=== PATIENT | female | born 1985 | race Asian ===

== ENCOUNTER 2018-05-04 11:07 | Inpatient (IN) ==
[2018-05-04] MEDS ORDERED: Docusate Sodium 100 MG Capsule PO PRN (11:58)
[2018-05-04] MEDS ORDERED: Acetaminophen 325 MG Tablet PO PRN (11:58)
--- NOTE | 2018-05-04 12:09 | P.HPOB ---
History of Present Illness Service: ob Primary Care Physician: No Primary Care Physician Chief Complaint: pih History of Present Illness: 32 yo G1 with iup at 36 weeks with pih. She had labs over the weekend that noted increased P:C, worsening of UA and lft. She was going to turn in 24 hour urine today but was called and instructed to bring it with her to the hospital. She was placed on bedrest last week as she had elevated bp at home and at pharmacy checks. She was also having LEVINE but these resolved w tylenol. She also has had ruq pain starting last night. She has good fm, neg ctx/vb/lof. 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 pap or std OB: G1 Fam: no genetic or defects Review of Systems All other systems reviewed negative except as stated in HPI [facility] - Medical History Medical History: Medical History (Last Updated 04/24/18 @ 16:09 by Jorge Burden MD) Hyperthyroidism during - Tobacco History Second Hand Smoke Exposure: No Smoking Status: Never smoker - Alcohol History How Often Do You Have a Drink Containing Alcohol: Never - Substance Use History Substance History: No History of Abuse Medications and Allergies Allergies Allergy/AdvReac Type Severity Reaction Status Date / Time No Known Drug Allergies Allergy Unknown none Verified 04/12/18 12:18 Home Medications Medication Instructions Recorded Confirmed Type 1 tab PO DAILY 05/04/18 05/04/18 History Exam Vital signs: Vital Signs 05/04/18 11:37 Temperature 98.8 F Pulse Rate 74 Respiratory Rate 20 Blood Pressure 134/87 Intake & Output 05/03/18 05/04/18 05/04/18 18:59 06:59 18:59 Weight 64.41 kg Other: Weight On Admission 64.41 kg - Constitutional no acute distress - Routine HEENT Exam Head: Present: normocephalic Eye: Present: EOMI - Routine Neck Exam Present: full ROM - Routine Respiratory Exam Absent: accessory muscle use, decreased breath sounds - Routine Cardiovascular Exam Present: RRR - Routine Exam Comments: ft/thick/high per rn check - Routine Extremities Exam Absent: cyanosis, clubbing - Routine Neurological Exam Present: alert, oriented X3 Results - Labs CBC & Chem 7: 05/04/18 12:45 12/17/18 12:45 Caprini VTE Risk Assessment Caprini VTE Risk Assessment: No/Low Risk (score <= 1) Caprini Risk Assessment Model: Point Value = 1 Point Value = 2 Point Value = 3 Point Value = 5 Age 41-60 Minor surgery BMI > 25 kg/m2 Swollen legs Varicose veins or History of unexplained or recurrent spontaneous Oral contraceptives or hormone replacement Sepsis (< 1 month) Serious lung disease, including pneumonia (< 1 month) Abnormal pulmonary function Acute myocardial infarction Congestive heart failure (< 1 month) History of inflammatory bowel disease Medical patient at bed rest Age 61-74 Arthroscopic surgery Major open surgery (> 45 min) Laparoscopic surgery (> 45 min) Malignancy Confined to bed (> 72 hours) Immobilizing plaster cast Central venous access Age >= 75 History of VTE Family history of VTE Factor V Leiden Prothrombin [id number] Lupus anticoagulant Anticardiolipin antibodies Elevated serum homocysteine Heparin-induced thrombocytopenia Other congenital or acquired thrombophilia Stroke (< 1 month) Elective arthroplasty Hip, pelvis, or leg fracture Acute spinal cord injury (< 1 month) Prophylaxis Regimen: Total Risk Factor Score Risk Level Prophylaxis Regimen 0-1 Low Early ambulation 2 Moderate Order ONE of the following: *Sequential Compression Device (SCD) *Heparin 5000 units SQ BID 3-4 Higher Order ONE of the following medications: *Heparin 5000 units SQ TID *Enoxaparin/Lovenox 40 mg SQ daily (WT < 150 kg, CrCl > 30 mL/min) *Enoxaparin/Lovenox 30 mg SQ daily (WT < 150 kg, CrCl > 10-29 mL/min) *Enoxaparin/Lovenox 30 mg SQ BID (WT < 150 kg, CrCl > 30 mL/min) AND/OR *Sequential Compression Device (SCD) 5 or more Highest Order ONE of the following medications: *Heparin 5000 units SQ TID (Preferred with Epidurals) *Enoxaparin/Lovenox 40 mg SQ daily (WT < 150 kg, CrCl > 30 mL/min) *Enoxaparin/Lovenox 30 mg SQ daily (WT < 150 kg, CrCl > 10-29 mL/min) *Enoxaparin/Lovenox 30 mg SQ BID (WT < 150 kg, CrCl > 30 mL/min) AND *Sequential Compression Device (SCD) Assessment and Plan - Diagnosis (1) PIH ( induced hypertension) Code(s): Z3A.34 - 34 weeks gestation of Status: Acute (2) 36 weeks gestation of Code(s): O16.9 - Unspecified maternal hypertension, unspecified trimester Status: Acute (3) Headache Code(s): R51 - Headache Status: Acute - Plan 32 yo G1with iup at 36 weeks being admitted for pre-eclampsia workup. She has new ruq pain that started last night. Outpt labs with P:C of 0.9, previously 0.17, UA 7.3, AST 35. She collected a 24 hour urine at home, will submit in hospital for evaluation. Will start bms. May need delivery now based on labs and BP. 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 Will proceed with iol with cervical ripening agent cervidil. Will start magnesium during active phase of labor.
[2018-05-04] MEDS: Betamethasone Sod Phos/Acetate Inj 30 MG/5 ML Vial IM SCH (12:32)
[2018-05-04 13:32] LABS: Bilirubin,Urine Negative (Negative); Clarity,Urine Hazy (Clear); Color,Urine Yellow (Yellw/Straw); Glucose,Urine (UA) Negative (Negative); Hyaline Casts,Urine 1 /lpf (0-3); Leukocyte Esterase,Urine Negative (Negative); Mucus,Urine Few /lpf (Occasional); Nitrite,Urine Negative (Negative); Specific Gravity,Urine 1.021 (1.002-1.035); Squamous Epithelial Cell,Urine 16 /hpf (0-5); Transitional Epi Cells,Urine 1 /hpf
[2018-05-04 13:34] LABS: Hematocrit 34.8 % (35.0-46.0); Hemoglobin 11.8 gm/dL (11.6-15.3); Mean Corpuscular Hemoglobin 30.2 pg (27.0-34.0); Mean Corpuscular Volume 88.7 fL (80.0-100.0); Mean Platelet Volume 10.3 fL (7.0-11.0); Platelet Count 182 th/mm3 (150-450); Red Blood Count 3.93 mil/mm3 (4.00-5.30); Red Cell Distribution Width 14.1 % (11.6-17.2); White Blood Count 12.4 th/mm3 (4.0-11.0)
[2018-05-04 13:47] LABS: Alanine Aminotransferase 39 U/L (10-53); Albumin 2.8 g/dL (3.4-5.0); Anion Gap 6 meq/L (5-15); Aspartate Aminotransferase 41 U/L (15-37); Blood Urea Nitrogen 19 mg/dL (7-18); Calcium 8.6 mg/dL (8.5-10.1); Chloride 106 meq/L (98-107); Glomerular Filtration Rate 58 mL/min (>89); Glucose,Random 79 mg/dL (74-106); Potassium 4.5 meq/L (3.5-5.1); Sodium 136 meq/L (136-145); Uric Acid 8.9 mg/dl (2.6-6.0)
[2018-05-04 13:49] LABS: Alkaline Phosphatase 343 U/L (45-117); Total Protein 7.6 g/dL (6.4-8.2)
[2018-05-04 14:09] LABS: Creatinine 24 Hour,Urine 1.25 gm/24hr (0.63-2.50)
[2018-05-04] MEDS ORDERED: Naloxone Inj 0.4 MG/ML Vial IV.PUSH PRN (14:42)
[2018-05-04] MEDS ORDERED: Sod Chloride 0.9% Inj 1,000 ML IV.CONT PRN (14:42)
[2018-05-04] MEDS ORDERED: fentaNYL Citrate Inj 100 MCG/2 ML Ampul IV.PUSH PRN ×2 (14:42)
[2018-05-04] MEDS ORDERED: Sodium Chlor 0.9% Inj 500 ML IV.SIG PRN (14:42)
[2018-05-04] MEDS ORDERED: Citric Acid/Sodium Citrate Liq 30 ML UDC PO SCH (14:45)
[2018-05-04] MEDS ORDERED: Sod Chloride 0.9% Inj 1,000 ML IRRIGATION SCH (14:45)
[2018-05-04] MEDS ORDERED: Oxytocin 30 Units/500ml Premix 30 UNITS/500 ML BAG IV.SIG ONE (15:00)
[2018-05-04] MEDS ORDERED: Oxytocin 30 Units/500ml Premix 30 UNITS/500 ML BAG IV.SIG PRN (17:46)
[2018-05-04] MEDS: Mag Sulf/Water 40 gm/1000 ml 40 GM/1,000 ML BAG IV.CONT SCH (20:35)
[2018-05-05 06:08] LABS: Hematocrit 38.2 % (35.0-46.0); Mean Corpuscular Hemoglobin 30.2 pg (27.0-34.0); Mean Corpuscular Volume 88.7 fL (80.0-100.0); Mean Platelet Volume 10.7 fL (7.0-11.0); Platelet Count 204 th/mm3 (150-450); Red Cell Distribution Width 13.9 % (11.6-17.2); White Blood Count 20.4 th/mm3 (4.0-11.0)
[2018-05-05 06:23] LABS: Albumin 2.9 g/dL (3.4-5.0); Uric Acid 8.6 mg/dl (2.6-6.0)
[2018-05-05 06:25] LABS: Total Protein 7.8 g/dL (6.4-8.2)
[2018-05-05 08:52] LABS: Albumin 2.9 g/dL (3.4-5.0); Anion Gap 13 meq/L (5-15); Aspartate Aminotransferase 40 U/L (15-37); Blood Urea Nitrogen 16 mg/dL (7-18); Calcium 8.8 mg/dL (8.5-10.1); Carbon Dioxide 15.8 meq/L (21.0-32.0); Chloride 105 meq/L (98-107); Glomerular Filtration Rate 70 mL/min (>89); Glucose,Random 82 mg/dL (74-106); Potassium 4.4 meq/L (3.5-5.1); Sodium 134 meq/L (136-145)
[2018-05-05 08:53] LABS: Alanine Aminotransferase 42 U/L (10-53)
[2018-05-05 08:55] LABS: Alkaline Phosphatase 356 U/L (45-117); Total Protein 7.7 g/dL (6.4-8.2)
--- NOTE | 2018-05-05 08:58 | P.OBLABOR ---
Subjective Interval history: feeling mild contractions, reports SROM clear fluid around 4am; no headache or emesis overnight, still having RUQ pain but not worse, no blurry vision reported Objective Vital Signs: Vital Signs - 8 hr 05/05/18 01:43 05/05/18 02:58 05/05/18 04:00 Temperature 98.0 F Pulse Rate 61 60 61 Respiratory Rate 18 18 18 Blood Pressure 138/83 149/90 H 151/87 H 05/05/18 05:00 05/05/18 05:32 05/05/18 06:08 Temperature Pulse Rate 64 68 73 Respiratory Rate 18 18 Blood Pressure 145/89 H 134/86 141/87 H 05/05/18 06:12 05/05/18 06:42 05/05/18 07:05 Temperature 99.5 F Pulse Rate 75 65 Respiratory Rate 18 Blood Pressure 140/84 134/83 05/05/18 07:14 Temperature 98.2 F Pulse Rate Respiratory Rate 18 Blood Pressure Objective: Pelvic Exam: Cervix: [post] Dilatation: [1] Effacement: [th] Station: [-3] Presentation: [vtx] Membranes: [ruptured clear at 4am 05/05/18] Uterine Contractions: [q3-5 min] FHT's: Category: [I] Baseline: [130s-140s] Reactive: [y] Variability: [y] Decels: [n] Weeks Gestation: 36 Patient Started Active Labor: No Medical Induction of Labor: Yes Artificial Rupture of Membrane: No Assessment and Plan - Diagnosis (1) Preeclampsia Code(s): O14.90 - Unspecified pre-eclampsia, unspecified trimester Status: Acute (2) PIH ( induced hypertension) Code(s): Z3A.34 - 34 weeks gestation of Status: Acute (3) 36 weeks gestation of Code(s): O16.9 - Unspecified maternal hypertension, unspecified trimester Status: Acute (4) Headache Code(s): R51 - Headache Status: Acute - Plan 32 yo G1 with iup at 36.3 weeks admitted for pre-eclampsia workup, ruled in and induction started with cervidil. Overnight SROM'd clear fluid, still in latent labor, only 1 cm and thick cervix, on pitocin now, continue active mgmt. Previous note from Dr. Manning admission assessment: "She has new ruq pain that started last night. Outpt labs with P:C of 0.9, previously 0.17, UA 7.3, AST 35. She collected a 24 hour urine at home, will submit in hospital for evaluation. Will start bms. GBS negative. 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 Will proceed with iol with cervical ripening agent cervidil. Will start magnesium during active phase of labor." Discharge Planning: routine, 2-3d PP (1) Preeclampsia Qualifiers: Trimester: third trimester Qualified Code(s): O14.93 - Unspecified pre- eclampsia, third trimester (2) PIH ( induced hypertension) Qualifiers: Trimester: third trimester Qualified Code(s): O13.3 - Gestational [- induced] hypertension without significant proteinuria, third trimester (4) Headache Qualifiers: Headache type: unspecified Headache chronicity pattern: acute headache Intractability: not intractable Qualified Code(s): R51 - Headache
[2018-05-05] MEDS: Prenatal Vit/Ca/Iron/Folic Acid Tablet PO SCH (14:50)
[2018-05-05] MEDS ORDERED: Betamethasone Sod Phos/Acetate Inj 30 MG/5 ML Vial IM ONE (15:00)
[2018-05-05] MEDS: Betamethasone Sod Phos/Acetate Inj 30 MG/5 ML Vial IM SCH (15:03)
[2018-05-05] MEDS ORDERED: fentaNYL 2MCG-Bupiv 0.125% Epi 150 ML EPIDURAL ONE (22:54)
[2018-05-06] MEDS ORDERED: Simethicone 80 MG Chew Tablet PO PRN (10:32)
[2018-05-06] MEDS ORDERED: Senna/Docusate Sodium 8.6/50 MG Tablet PO PRN (10:32)
[2018-05-06] MEDS ORDERED: Oxytocin 30 Units/500ml Premix 30 UNITS/500 ML BAG IV.SIG ONE (10:32)
[2018-05-06] MEDS ORDERED: Morphine Sulfate PF Inj 5 MG/10 ML Ampul ONE (10:33)
--- NOTE | 2018-05-06 11:41 | P.OBDELI ---
Procedure Note Performed by: Calixto Rachel MD Procedure: Primary Low Transverse Section Indication for Delivery: Other (arrest of labor) Informed Consent Obtained: For anesthesia, For procedure Confirmed Correct: Patient, Procedure, Site, Time-out taken Anesthesia: Epidural Medication Prior to Procedure: As documented in eMAR Monitoring During Procedure: Blood pressure monitoring, journal box inspector, doppler, monitor, Pulse oximetry Urinary Catheter: Inserted using sterile technique, To dependent drainage Sterile Preparation: Duraprep, In usual fashion Position: Supine with wedge to right side, Supine with safety belt applied - Operative Features Skin Incision: Pfannenstiel Uterine Incision: Low transverse w/knife / scissors Membranes Ruptured: Previously, Appearance of fluid (light meconium) Presentation: Occiput anterior Status of : Viable, Cord blood, Umbilical cord, Nursery present, Resuscitation required Placenta Delivered: Intact Medications: Antibiotics, Oxytocin Estimated blood loss (mL): 650 Procedure Tolerated: Well Maternal Condition: Stable Baby Condition: Stable - : Male Infant Delivery Date: 05/06/18 Weight: 2.551 kg ("Deni") Delivery of Infant: Uneventful score (1 min): 7 score (5 min): 9
[2018-05-06] MEDS: Prenatal Vit/Ca/Iron/Folic Acid Tablet PO SCH (11:54)
--- NOTE | 2018-05-06 12:22 | MP ---
cc: Calixto Rachel MD DATE OF OPERATION: 05/06/2018 PREOPERATIVE DIAGNOSIS: The patient is 36 weeks with preeclampsia, arrest of descent, failure to progress. PROCEDURE: Primary low transverse section, delivery of viable male . POSTOPERATIVE DIAGNOSIS: Same. SURGEON: Calixto Rachel MD. ANESTHESIA: Epidural. ESTIMATED BLOOD LOSS: 650 mL. DRAINS: Lee to gravity. OPERATIVE FINDINGS: Male infant delivered. Apgars were 7 at one minute and 9 at 5. Cord blood gas was obtained, results are pending. Baby weighed 5 pounds 10 ounces. INDICATION OF PROCEDURE: The patient was brought in for elective induction due to increasing blood pressures with signs of developing early preeclampsia without severe features. The patient magnesium. She had been ruptured and had stalled at 4 cm, 4 cm was documented at 8 p.m. on 05/05/2018. She failed to progress despite adequate uterine contractions and the decision was to proceed with operative delivery. The patient was on magnesium 1 gram an hour and this was stopped for the duration of her section. The patient received Ancef IV prophylactically. PROCEDURE: The patient was in stable condition. heart rate tracing was category 1. She underwent reinforcement of epidural with good result. She was prepped and draped. Lee was previously inserted was draining clear urine. Sequential's were placed on lower extremities for VTE prophylaxis. After she was prepped and draped, a timeout was conducted, agreed with all present in the room. The patient was again tested for pain level and she had excellent pain management. A Pfannenstiel incision was utilized. It was just made above the pubic symphysis. It was carried through the skin down through the subcutaneous layer by sharp dissection. Any active bleeding was cauterized with the Bovie. The fascia was identified scored in the midline, extended laterally, then dissected from the rectus muscle. Entry into the peritoneal cavity was accomplished without difficulty by sharp dissection. The bladder blade was placed over the pubic symphysis. Transverse incision was made in the lower uterine segment, pushing the peritoneum off allowing the bladder to be out of the operative field. Entry into the uterine cavity revealed light green meconium fluid. This was not particulate. The was delivered in total with good tone and cry. Cord was doubly clamped and cut. Delay cord clamping was chosen not to be appropriate for this patient due to excessive bleeding. Once the cord was doubly clamped and cut and the infant was taken to [place] by the nursery staff. A cord segment was isolated and for cord blood gas and then a cord blood type was obtained. Placenta was removed intact without difficulty trailing membranes, no retained tissue. The uterus was nica nicely. Adnexa were palpated and visualized to be normal. Closure of the uterus was double-layer, first was a running locking suture, 0 Monocryl, followed by a second imbricating suture of 0 Monocryl. Pelvis was irrigated. No active bleeding, no retained blood clot. Full count was made and correct. Peritoneum was then closed with a running suture of 2-0 Monocryl. The muscle belly was reapproximated at the level of the pyramidalis with an interrupted 2-0 Monocryl. The fascia was then closed with 0 Vicryl in a simple running fashion with good result. Subcutaneous layer was irrigated. Any active bleeding again was cauterized. This space was reapproximated with a running suture of 2-0 Monocryl and 0 Stratafix was used to close the skin in a subcuticular fashion. Steri-Strips were applied to the wound. Dressing was applied. Final count was correct. The patient was stable. was doing well. Calixto Rachel MD SJKleber/ade/alma rosa , 11:46 AM , 11:56 AM
[2018-05-06] MEDS ORDERED: Naloxone Inj 0.4 MG/ML Vial IV.PUSH PRN (14:17)
[2018-05-06] MEDS: Mag Sulf/Water 40 gm/1000 ml 40 GM/1,000 ML BAG IV.CONT SCH (14:22)
[2018-05-06] MEDS: ceFAZolin 1 GM Premix Inj 1 GM/50 ML PIGGYBACK IV.SIG SCH (15:02)
[2018-05-06] MEDS ORDERED: Oxytocin 30 Units/500ml Premix 30 UNITS/500 ML BAG IV.SIG PRN (15:32)
[2018-05-06] MEDS: Labetalol 100 MG Tablet PO SCH (18:25)
[2018-05-07] MEDS: ceFAZolin 1 GM Premix Inj 1 GM/50 ML PIGGYBACK IV.SIG SCH (05:18)
[2018-05-07 05:50] LABS: Baso % (Auto) 0.1 % (0.0-2.0); Hematocrit 26.4 % (35.0-46.0); Hemoglobin 8.8 gm/dL (11.6-15.3); Lymph # (Auto) 2.4 th/mm3 (1.0-4.8); Mean Corpuscular HGB Conc 33.5 % (32.0-36.0); Mean Corpuscular Hemoglobin 29.7 pg (27.0-34.0); Mean Corpuscular Volume 88.6 fL (80.0-100.0); Mono # (Auto) 1.9 th/mm3 (0.0-0.9); Mono % (Auto) 6.3 % (0.0-8.0); Neut # (Auto) 25.3 th/mm3 (1.8-7.7); Neut % (Auto) 85.6 % (16.0-70.0); Platelet Count 150 th/mm3 (150-450); Red Blood Count 2.98 mil/mm3 (4.00-5.30); Red Cell Distribution Width 13.7 % (11.6-17.2); White Blood Count 29.6 th/mm3 (4.0-11.0)
[2018-05-07 06:16] LABS: Calcium 6.9 mg/dL (8.5-10.1); Carbon Dioxide 28.8 meq/L (21.0-32.0); Potassium 4.2 meq/L (3.5-5.1); Total Protein 5.6 g/dL (6.4-8.2)
[2018-05-07] MEDS: Labetalol 100 MG Tablet PO SCH ×2 (07:21→19:13)
[2018-05-07] MEDS: Ibuprofen 600 MG Tablet PO PRN ×3 (07:52→22:41)
--- NOTE | 2018-05-07 10:02 | P.PNOB ---
Subjective Post op day: 1 Interval history: Feeling well, no further ruq pain. No potter or blurry vision. No sob or palpitations. Still not ambulating as she is on mag and simons in place still. She has passed flatus Objective Vital Signs/I&O: Vital Signs 05/06/18 10:00 05/06/18 11:40 05/06/18 11:45 Temperature 98.0 F Pulse Rate 79 96 H Respiratory Rate 18 Blood Pressure 142/89 H 147/70 H 136/66 05/06/18 12:00 05/06/18 12:16 05/06/18 12:29 Temperature 98.4 F Pulse Rate 94 H 86 Respiratory Rate 18 18 Blood Pressure 119/59 L 103/72 05/06/18 12:31 05/06/18 12:52 05/06/18 12:55 Temperature Pulse Rate 79 84 83 Respiratory Rate 18 Blood Pressure 149/83 H 153/82 H 152/84 H 05/06/18 13:35 05/06/18 13:40 05/06/18 14:05 Temperature Pulse Rate 93 H 89 94 H Respiratory Rate Blood Pressure 170/90 H 05/06/18 14:10 05/06/18 15:00 05/06/18 15:05 Temperature Pulse Rate 93 H 92 H Respiratory Rate 16 Blood Pressure 152/82 H 05/06/18 15:15 05/06/18 15:35 05/06/18 16:00 Temperature Pulse Rate 97 H 93 H 113 H Respiratory Rate Blood Pressure 160/80 H 164/89 H 160/74 H 05/06/18 18:00 05/06/18 19:00 05/06/18 20:00 Temperature 99.1 F Pulse Rate 88 99 H Respiratory Rate 18 18 Blood Pressure 120/66 150/88 H 05/06/18 20:05 05/06/18 23:00 05/06/18 23:40 Temperature 98.7 F Pulse Rate 83 74 Respiratory Rate 18 Blood Pressure 140/82 113/62 05/07/18 01:00 05/07/18 02:06 05/07/18 04:00 Temperature Pulse Rate 72 70 74 Respiratory Rate 16 16 18 Blood Pressure 117/71 119/77 139/83 05/07/18 05:00 05/07/18 06:00 05/07/18 06:23 Temperature Pulse Rate 72 78 Respiratory Rate 18 18 Blood Pressure 135/80 125/72 05/07/18 07:23 05/07/18 07:40 05/07/18 07:50 Temperature 98.6 F Pulse Rate 65 66 66 Respiratory Rate 17 Blood Pressure 127/78 Intake & Output 05/06/18 05/07/18 05/07/18 18:59 06:59 18:59 Intake Total 1050 / 1050 1000 / 1000 Balance 1050 / 1050 1000 / 1000 Intake: IV 1050 / 1050 1000 / 1000 LR 1000 mL Inj 1,000 ML @ 75 1000 / 1000 mls/hr IV.CONT .[id number] [facility] Rx# :[id number] Magnesium Sulfate/Water 40 gm/ 1000 / 1000 1000 ml Premix 40 gm In 1,000 ml @ 1 GM/HR 25 mls/hr IV.CONT .Q24H [facility] Rx#:[id number] Ancef 1 GM Premix Inj 1 gm In 50 / 50 50 ml @ 150 mls/hr IV.SIG Q8H [facility] Rx#:[id number] Result Diagrams: 05/07/18 05:04 05/07/18 05:04 Objective Remarks: GENERAL: Well-nourished, well-developed patient. CARDIOVASCULAR: Regular rate and rhythm without murmurs, gallops, or rubs. RESPIRATORY: Breath sounds equal bilaterally. No accessory muscle use. ABDOMEN/GI: Abdomen soft, non-tender, bowel sounds present. Incision:dressing Clean, dry and intact. Fundus: Firm, non-tender at umbilicus. GENITOURINARY: Light to moderate bleeding. EXTREMITIES: No cyanosis or edema, non-tender, without signs of DVT. Normal reflexes Medications and IVs: Active Medications Acetaminophen (Tylenol) 650 mg PO Q4H PRN PRN Reason: PAIN SCALE 1 TO 2 Last Admin: 05/04/18 18:48 Dose: 650 mg Calcium Gluconate (Calcium Gluconate Inj) 1 gm IV.PUSH PRN PRN PRN Reason: Magnesium toxicity Citric Acid/Sodium Citrate (Sodium Citrate/Citric Acid Liq) 30 ml PO PRO SHOP ATTENDANT [facility] Stop: 05/08/18 14:44 Diphenhydramine HCl (Benadryl) 50 mg PO Q6H PRN PRN Reason: MILD TO MODERATE ITCHING Stop: 05/07/18 11:25 Diphenhydramine HCl (Benadryl Inj) 25 mg IV.PUSH Q6H PRN PRN Reason: MILD TO MODERATE ITCHING Stop: 05/07/18 11:25 Diphtheria/Pertussis/Tetanus Vacc (Boostrix Vaccine Inj) 0.5 ml IM .ONCE ONE Stop: 05/07/18 16:01 Docusate Sodium (Colace) 100 mg PO BID PRN PRN Reason: CONSTIPATION Last Admin: 05/06/18 22:40 Dose: 100 mg Fentanyl Citrate (Fentanyl Inj) 50 mcg IV.PUSH Q1H PRN PRN Reason: Pain Scale 3 - 5 Last Admin: 05/04/18 20:34 Dose: 50 mcg Fentanyl Citrate (Fentanyl Inj) 100 mcg IV.PUSH Q1H PRN PRN Reason: PAIN SCALE 6 TO 10 Lactated Ringer's (Lr 1000 Ml Inj) 1,000 mls @ 75 mls/hr IV.CONT .[id number] [facility] Last Admin: 05/06/18 22:40 Dose: 75 mls/hr Lactated Ringer's (Lr 1000 Ml Inj) 1,000 mls @ 3,000 mls/hr IV.SIG UNSCH PRN PRN Reason: compromise or epidural Sodium Chloride (Ns Inj) 500 mls @ 1,000 mls/hr IV.SIG UNSCH PRN PRN Reason: SEE LABEL COMMENTS Sodium Chloride (Ns Inj) 1,000 mls @ 100 mls/hr IV.CONT .Q10H PRN PRN Reason: SEE LABEL COMMENTS Oxytocin (Pitocin 30 Units/Ns 500 Ml Premix) 30 units in 500 mls @ 1 mls/hr IV.SIG TITRATE PRN; Protocol PRN Reason: For induction of labor Last Admin: 05/05/18 04:59 Dose: 1 milliunit/min, 1 mls/hr Magnesium Sulfate (Magnesium Sulfate/Water 40 Gm/1000 Ml Premix) 40 gm in 1, 000 mls @ 25 mls/hr IV.CONT .Q24H [facility] Last Admin: 05/06/18 14:22 Dose: 1 gm/hr, 25 mls/hr Lactated Ringer's (Lr 1000 Ml Inj) 1,000 mls @ 100 mls/hr IV.CONT .Q10H [facility] Stop: 05/07/18 11:31 Last Admin: 05/06/18 18:46 Dose: Not Given Oxytocin (Pitocin 30 Units/Ns 500 Ml Premix) 30 units in 500 mls @ 100 mls/hr IV.SIG UNSCH PRN PRN Reason: Heavy bleeding Ibuprofen (Motrin) 600 mg PO Q6H PRN PRN Reason: ABDOMINAL CRAMPING Last Admin: 05/07/18 07:52 Dose: 600 mg Labetalol HCl (Trandate) 100 mg PO Q12H [facility] Last Admin: 05/07/18 07:21 Dose: 100 mg Lidocaine HCl (Xylocaine 1% Inj) 0.1 ml I-DERMAL PRN PRN PRN Reason: For IV start Stop: 05/07/18 14:41 Measles/Mumps/Rubella Vaccine Live (M-M-R Ii Vaccine Inj) 0.5 ml SQ .ONCE ONE Stop: 05/07/18 16:01 Mineral Oil (Muri-Lube Oil) 10 ml TOPICAL UNSCH PRN PRN Reason: PRN perineal massage Miscellaneous Information ([facility]) 1 each OTHER UNSCH PRN PRN Reason: SEE LABEL COMMENTS Stop: 05/07/18 11:25 Miscellaneous Information ([facility]) 1 each OTHER UNSCH PRN PRN Reason: SEE LABEL COMMENTS Stop: 05/07/18 11:25 Naloxone HCl (Narcan Inj) 0.1 mg IV.PUSH Q2M PRN PRN Reason: for opiate reversal Naloxone HCl (Narcan Inj) 0.4 mg IV.PUSH UNSCH PRN PRN Reason: SEE LABEL COMMENTS Stop: 05/07/18 11:25 Ondansetron HCl (Zofran Odt) 4 mg PO Q6H PRN PRN Reason: NAUSEA OR VOMITING Ondansetron HCl (Zofran Inj) 4 mg IV.PUSH Q6H PRN PRN Reason: NAUSEA OR VOMITING Last Admin: 05/04/18 20:42 Dose: 4 mg Ondansetron HCl (Zofran Inj) 4 mg IV.PUSH Q6H PRN PRN Reason: NAUSEA OR VOMITING Oxycodone/Acetaminophen (Percocet 5/325 Mg) 1 tab PO Q4H PRN PRN Reason: PAIN SCALE 3 TO 5 Oxycodone/Acetaminophen (Percocet 5/325 Mg) 2 tab PO Q4H PRN PRN Reason: PAIN SCALE 6 TO 10 Vit/Calcium/Iron/Folic Ac (Stuartnatal Plus 3) 1 tab PO DAILY [facility] Last Admin: 05/06/18 11:54 Dose: Not Given Senna/Docusate Sodium (Millie-Colace) 2 tab PO Q12H PRN PRN Reason: CONSTIPATION Simethicone (Mylicon Chew) 80 mg PO QID PRN PRN Reason: FLATULENCE Sodium Chloride (Ns Flush) 2 ml IV.FLUSH BID [facility] Last Admin: 05/07/18 05:19 Dose: Not Given Sodium Chloride (Ns Flush) 2 ml IV.FLUSH PRN PRN PRN Reason: FLUSH AFTER USING IV ACCESS Sodium Chloride (Ns Flush) 2 ml IV.FLUSH BID [facility] Last Admin: 05/07/18 05:20 Dose: Not Given Sodium Chloride (Ns Flush) 2 ml IV.FLUSH PRN PRN PRN Reason: FLUSH AFTER USING IV ACCESS Assessment and Plan - Plan POD 1 s/p primary cd for arrest of dilation. Pre-eclampsia with severe freatures- 24 hour pp magnesium over at 11 today. She is on labetalol 100mg bid. Cr normal but lft still elevated. Will need to f/u 1 wk after d/c in office. Anemia- hgb 8.8, will see if symptomatic once ambulatory. Will need iron Continue supportive care. " Discharge Planning: routine, 3d PP
[2018-05-07] MEDS: Prenatal Vit/Ca/Iron/Folic Acid Tablet PO SCH (13:50)
[2018-05-07] MEDS: Mag Sulf/Water 40 gm/1000 ml 40 GM/1,000 ML BAG IV.CONT SCH (14:23)
[2018-05-07] MEDS ORDERED: Measles/Mumps/Rubella Vaccine Inj 0.5 ML Vial SQ ONE (16:00)
[2018-05-07] MEDS ORDERED: Diphtheria/Tetanus/Pertussis Vaccine Inj 0.5 ML Syringe IM ONE (16:00)
[2018-05-08] MEDS: Ibuprofen 600 MG Tablet PO PRN ×2 (06:25→18:15)
[2018-05-08] MEDS: Labetalol 100 MG Tablet PO SCH ×2 (06:25→18:15)
--- NOTE | 2018-05-08 08:34 | P.PNOB ---
Subjective Post op day: 2 Interval history: Doing well Pain is controlled Baby is good Tolerating diet well Objective Vital Signs/I&O: Vital Signs 05/07/18 10:44 05/07/18 11:12 05/07/18 12:56 Temperature 98.8 F Pulse Rate 74 81 81 Respiratory Rate 16 18 Blood Pressure 121/74 126/69 110/56 L 05/07/18 12:57 05/07/18 13:00 05/07/18 14:27 Temperature 98.1 F Pulse Rate 80 72 Respiratory Rate 17 18 Blood Pressure 135/80 147/88 H 05/07/18 20:00 05/08/18 00:00 05/08/18 03:59 Temperature 98.3 F 98.0 F 98.4 F Pulse Rate 79 64 70 Respiratory Rate 18 18 18 Blood Pressure 145/86 H 142/83 H 136/89 Result Diagrams: 05/07/18 05:04 05/07/18 05:04 Objective Remarks: GENERAL: Well-nourished, well-developed patient. CARDIOVASCULAR: Regular rate and rhythm without murmurs, gallops, or rubs. RESPIRATORY: Breath sounds equal bilaterally. No accessory muscle use. ABDOMEN/GI: Abdomen soft, non-tender, bowel sounds present. Incision: Clean, dry and intact. Fundus: Firm, non-tender at umbilicus. GENITOURINARY: Light to moderate bleeding. EXTREMITIES: No cyanosis or edema, non-tender, without signs of DVT. Medications and IVs: Active Medications Acetaminophen (Tylenol) 650 mg PO Q4H PRN PRN Reason: PAIN SCALE 1 TO 2 Last Admin: 05/04/18 18:48 Dose: 650 mg Calcium Gluconate (Calcium Gluconate Inj) 1 gm IV.PUSH PRN PRN PRN Reason: Magnesium toxicity Citric Acid/Sodium Citrate (Sodium Citrate/Citric Acid Liq) 30 ml PO HAM FACER EULALIA Stop: 05/08/18 14:44 Docusate Sodium (Colace) 100 mg PO BID PRN PRN Reason: CONSTIPATION Last Admin: 05/06/18 22:40 Dose: 100 mg Fentanyl Citrate (Fentanyl Inj) 50 mcg IV.PUSH Q1H PRN PRN Reason: Pain Scale 3 - 5 Last Admin: 05/04/18 20:34 Dose: 50 mcg Fentanyl Citrate (Fentanyl Inj) 100 mcg IV.PUSH Q1H PRN PRN Reason: PAIN SCALE 6 TO 10 Lactated Ringer's (Lr 1000 Ml Inj) 1,000 mls @ 75 mls/hr IV.CONT .[id number] [facility] Last Admin: 05/08/18 07:28 Dose: Not Given Lactated Ringer's (Lr 1000 Ml Inj) 1,000 mls @ 3,000 mls/hr IV.SIG UNSCH PRN PRN Reason: compromise or epidural Sodium Chloride (Ns Inj) 500 mls @ 1,000 mls/hr IV.SIG UNSCH PRN PRN Reason: SEE LABEL COMMENTS Sodium Chloride (Ns Inj) 1,000 mls @ 100 mls/hr IV.CONT .Q10H PRN PRN Reason: SEE LABEL COMMENTS Oxytocin (Pitocin 30 Units/Ns 500 Ml Premix) 30 units in 500 mls @ 1 mls/hr IV.SIG TITRATE PRN; Protocol PRN Reason: For induction of labor Last Admin: 05/05/18 04:59 Dose: 1 milliunit/min, 1 mls/hr Magnesium Sulfate (Magnesium Sulfate/Water 40 Gm/1000 Ml Premix) 40 gm in 1, 000 mls @ 25 mls/hr IV.CONT .Q24H [facility] Last Admin: 05/07/18 14:23 Dose: Not Given Oxytocin (Pitocin 30 Units/Ns 500 Ml Premix) 30 units in 500 mls @ 100 mls/hr IV.SIG UNSCH PRN PRN Reason: Heavy bleeding Ibuprofen (Motrin) 600 mg PO Q6H PRN PRN Reason: ABDOMINAL CRAMPING Last Admin: 05/08/18 06:25 Dose: 600 mg Labetalol HCl (Trandate) 100 mg PO Q12H [facility] Last Admin: 05/08/18 06:25 Dose: 100 mg Mineral Oil (Muri-Lube Oil) 10 ml TOPICAL UNSCH PRN PRN Reason: PRN perineal massage Naloxone HCl (Narcan Inj) 0.1 mg IV.PUSH Q2M PRN PRN Reason: for opiate reversal Ondansetron HCl (Zofran Odt) 4 mg PO Q6H PRN PRN Reason: NAUSEA OR VOMITING Ondansetron HCl (Zofran Inj) 4 mg IV.PUSH Q6H PRN PRN Reason: NAUSEA OR VOMITING Last Admin: 05/04/18 20:42 Dose: 4 mg Ondansetron HCl (Zofran Inj) 4 mg IV.PUSH Q6H PRN PRN Reason: NAUSEA OR VOMITING Oxycodone/Acetaminophen (Percocet 5/325 Mg) 1 tab PO Q4H PRN PRN Reason: PAIN SCALE 3 TO 5 Last Admin: 05/07/18 16:17 Dose: 1 tab Oxycodone/Acetaminophen (Percocet 5/325 Mg) 2 tab PO Q4H PRN PRN Reason: PAIN SCALE 6 TO 10 Vit/Calcium/Iron/Folic Ac (Stuartnatal Plus 3) 1 tab PO DAILY [facility] Last Admin: 05/07/18 13:50 Dose: Not Given Senna/Docusate Sodium (Millie-Colace) 2 tab PO Q12H PRN PRN Reason: CONSTIPATION Simethicone (Mylicon Chew) 80 mg PO QID PRN PRN Reason: FLATULENCE Sodium Chloride (Ns Flush) 2 ml IV.FLUSH BID [facility] Last Admin: 05/07/18 22:15 Dose: Not Given Sodium Chloride (Ns Flush) 2 ml IV.FLUSH PRN PRN PRN Reason: FLUSH AFTER USING IV ACCESS Sodium Chloride (Ns Flush) 2 ml IV.FLUSH BID [facility] Last Admin: 05/07/18 22:00 Dose: 2 ml Sodium Chloride (Ns Flush) 2 ml IV.FLUSH PRN PRN PRN Reason: FLUSH AFTER USING IV ACCESS Assessment and Plan - Plan POD #2 Severe preeclampsia BP are good Severe anemia with an increased WBC Will recheck cbc now and consider d/c home later today. Discharge Planning: routine, 3d PP
[2018-05-08] MEDS: Mag Sulf/Water 40 gm/1000 ml 40 GM/1,000 ML BAG IV.CONT SCH ×2 (09:13→21:00)
[2018-05-08 10:23] LABS: Baso # (Auto) 0.1 th/mm3 (0.0-0.2); Baso % (Auto) 0.4 % (0.0-2.0); Eos # (Auto) 0.1 th/mm3 (0.0-0.4); Eos % (Auto) 0.3 % (0.0-4.0); Hematocrit 29.9 % (35.0-46.0); Hemoglobin 9.9 gm/dL (11.6-15.3); Lymph % (Auto) 12.9 % (9.0-44.0); Mean Corpuscular HGB Conc 33.3 % (32.0-36.0); Mean Corpuscular Hemoglobin 29.8 pg (27.0-34.0); Mean Corpuscular Volume 89.5 fL (80.0-100.0); Mean Platelet Volume 9.7 fL (7.0-11.0); Mono # (Auto) 1.1 th/mm3 (0.0-0.9); Mono % (Auto) 3.5 % (0.0-8.0); Neut # (Auto) 25.4 th/mm3 (1.8-7.7); Neut % (Auto) 82.9 % (16.0-70.0); Platelet Count 202 th/mm3 (150-450); Red Blood Count 3.34 mil/mm3 (4.00-5.30); Red Cell Distribution Width 14.5 % (11.6-17.2); White Blood Count 30.7 th/mm3 (4.0-11.0)
[2018-05-08 11:03] LABS: Lymphocytes 12 % (9-44); Metamyelocytes 1 % (0-1); Monocytes 5 % (0-8); Platelet Estimate Normal (Normal); Platelet Morphology Normal (Normal); Tallied Nucleated RBC 4 (0-0)
[2018-05-08 11:04] LABS: RBC Morphology Normal (Normal)
--- NOTE | 2018-05-08 20:43 | P.OBGPN ---
We were watching this patient for her high white blood cell count repeat blood work revealed a white count of 30.7 with a slightly left shift. She denies any fevers chills. Her bleeding is normal. She feels well she does not feel ill. Physical exam Chest is clear to auscultation Heart has a regular rate and rhythm with normal S1-S2 Abdomen is soft and nontender Fundus is right below the umbilicus and it is nontender The extremities there is slight lower extremity swelling there is no cord or tenderness in the calf. Assessment and plan #1. Postoperative day #2 #2. Increased white blood cell count with a left shift will go ahead and check her CBC in the morning #3. Preeclampsia. We will go ahead and follow her blood pressures they are remaining a little bit high but not high enough to start medicines
[2018-05-09] MEDS: Ibuprofen 600 MG Tablet PO PRN (05:54)
[2018-05-09] MEDS: Labetalol 100 MG Tablet PO SCH (05:54)
[2018-05-09 08:26] LABS: Baso # (Auto) 0.1 th/mm3 (0.0-0.2); Baso % (Auto) 0.5 % (0.0-2.0); Eos # (Auto) 0.6 th/mm3 (0.0-0.4); Eos % (Auto) 2.3 % (0.0-4.0); Hematocrit 26.3 % (35.0-46.0); Hemoglobin 8.8 gm/dL (11.6-15.3); Lymph # (Auto) 3.7 th/mm3 (1.0-4.8); Lymph % (Auto) 15.8 % (9.0-44.0); Mean Corpuscular HGB Conc 33.4 % (32.0-36.0); Mean Corpuscular Hemoglobin 29.9 pg (27.0-34.0); Mean Corpuscular Volume 89.7 fL (80.0-100.0); Mono % (Auto) 4.4 % (0.0-8.0); Neut # (Auto) 18.2 th/mm3 (1.8-7.7); Platelet Count 233 th/mm3 (150-450); Red Blood Count 2.93 mil/mm3 (4.00-5.30); Red Cell Distribution Width 14.2 % (11.6-17.2); White Blood Count 23.7 th/mm3 (4.0-11.0)
[2018-05-09] MEDS: Prenatal Vit/Ca/Iron/Folic Acid Tablet PO SCH (09:06)
[2018-05-09 09:15] LABS: Eosinophils 2 % (0-4); Lymphocytes 12 % (9-44); Monocytes 2 % (0-8); Myelocytes 2 % (0-0); Tallied Nucleated RBC 3 (0-0)
[2018-05-09 09:16] LABS: Platelet Estimate Normal (Normal); Platelet Morphology Normal (Normal); Polychromasia 2.2 % (0.0-1.9)
--- NOTE | 2018-05-09 13:10 | P.PNOB ---
Subjective Post op day: 2 Interval history: Doing well, Pain is well controlled. Baby is good Bleeding is normal. No fever chills or pain Objective Vital Signs/I&O: Vital Signs 05/08/18 18:00 05/08/18 20:00 05/09/18 00:00 Temperature 99.4 F 98.3 F 98.3 F Pulse Rate 74 88 79 Respiratory Rate 18 18 18 Blood Pressure 153/86 H 160/85 H 154/90 H 05/09/18 01:00 05/09/18 04:00 05/09/18 09:00 Temperature 98.4 F 97.7 F Pulse Rate 75 76 69 Respiratory Rate 18 18 Blood Pressure 153/89 H 146/89 H 149/86 H Intake & Output 05/08/18 05/09/18 05/09/18 18:59 06:59 18:59 Intake Total 0 / 0 Balance 0 / 0 Intake: IV 0 / 0 Magnesium Sulfate/Water 40 gm/ 0 / 0 1000 ml Premix 40 gm In 1,000 ml @ 1 GM/HR 25 mls/hr IV.CONT .Q24H [facility] Rx#:[id number] Result Diagrams: 05/09/18 08:00 05/07/18 05:04 Objective Remarks: GENERAL: Well-nourished, well-developed patient. CARDIOVASCULAR: Regular rate and rhythm without murmurs, gallops, or rubs. RESPIRATORY: Breath sounds equal bilaterally. No accessory muscle use. ABDOMEN/GI: Abdomen soft, non-tender, bowel sounds present. Incision: Clean, dry and intact. Fundus: Firm, non-tender at umbilicus. GENITOURINARY: Light to moderate bleeding. EXTREMITIES: No cyanosis or edema, non-tender, without signs of DVT. Medications and IVs: Active Medications Acetaminophen (Tylenol) 650 mg PO Q4H PRN PRN Reason: PAIN SCALE 1 TO 2 Last Admin: 05/04/18 18:48 Dose: 650 mg Calcium Gluconate (Calcium Gluconate Inj) 1 gm IV.PUSH PRN PRN PRN Reason: Magnesium toxicity Docusate Sodium (Colace) 100 mg PO BID PRN PRN Reason: CONSTIPATION Last Admin: 05/06/18 22:40 Dose: 100 mg Fentanyl Citrate (Fentanyl Inj) 50 mcg IV.PUSH Q1H PRN PRN Reason: Pain Scale 3 - 5 Last Admin: 05/04/18 20:34 Dose: 50 mcg Fentanyl Citrate (Fentanyl Inj) 100 mcg IV.PUSH Q1H PRN PRN Reason: PAIN SCALE 6 TO 10 Lactated Ringer's (Lr 1000 Ml Inj) 1,000 mls @ 75 mls/hr IV.CONT .[id number] [facility] Last Admin: 05/08/18 07:28 Dose: Not Given Lactated Ringer's (Lr 1000 Ml Inj) 1,000 mls @ 3,000 mls/hr IV.SIG UNSCH PRN PRN Reason: compromise or epidural Sodium Chloride (Ns Inj) 500 mls @ 1,000 mls/hr IV.SIG UNSCH PRN PRN Reason: SEE LABEL COMMENTS Sodium Chloride (Ns Inj) 1,000 mls @ 100 mls/hr IV.CONT .Q10H PRN PRN Reason: SEE LABEL COMMENTS Oxytocin (Pitocin 30 Units/Ns 500 Ml Premix) 30 units in 500 mls @ 1 mls/hr IV.SIG TITRATE PRN; Protocol PRN Reason: For induction of labor Last Admin: 05/05/18 04:59 Dose: 1 milliunit/min, 1 mls/hr Magnesium Sulfate (Magnesium Sulfate/Water 40 Gm/1000 Ml Premix) 40 gm in 1, 000 mls @ 25 mls/hr IV.CONT .Q24H [facility] Last Admin: 05/08/18 21:00 Dose: Not Given Oxytocin (Pitocin 30 Units/Ns 500 Ml Premix) 30 units in 500 mls @ 100 mls/hr IV.SIG UNSCH PRN PRN Reason: Heavy bleeding Ibuprofen (Motrin) 600 mg PO Q6H PRN PRN Reason: ABDOMINAL CRAMPING Last Admin: 05/09/18 05:54 Dose: 600 mg Labetalol HCl (Trandate) 100 mg PO Q12H [facility] Last Admin: 05/09/18 05:54 Dose: 100 mg Mineral Oil (Muri-Lube Oil) 10 ml TOPICAL UNSCH PRN PRN Reason: PRN perineal massage Naloxone HCl (Narcan Inj) 0.1 mg IV.PUSH Q2M PRN PRN Reason: for opiate reversal Ondansetron HCl (Zofran Odt) 4 mg PO Q6H PRN PRN Reason: NAUSEA OR VOMITING Ondansetron HCl (Zofran Inj) 4 mg IV.PUSH Q6H PRN PRN Reason: NAUSEA OR VOMITING Last Admin: 05/04/18 20:42 Dose: 4 mg Ondansetron HCl (Zofran Inj) 4 mg IV.PUSH Q6H PRN PRN Reason: NAUSEA OR VOMITING Oxycodone/Acetaminophen (Percocet 5/325 Mg) 1 tab PO Q4H PRN PRN Reason: PAIN SCALE 3 TO 5 Last Admin: 05/07/18 16:17 Dose: 1 tab Oxycodone/Acetaminophen (Percocet 5/325 Mg) 2 tab PO Q4H PRN PRN Reason: PAIN SCALE 6 TO 10 Vit/Calcium/Iron/Folic Ac (Stuartnatal Plus 3) 1 tab PO DAILY [facility] Last Admin: 05/09/18 09:06 Dose: 1 tab Senna/Docusate Sodium (Millie-Colace) 2 tab PO Q12H PRN PRN Reason: CONSTIPATION Last Admin: 05/09/18 05:55 Dose: 2 tab Simethicone (Mylicon Chew) 80 mg PO QID PRN PRN Reason: FLATULENCE Sodium Chloride (Ns Flush) 2 ml IV.FLUSH BID [facility] Last Admin: 05/09/18 10:04 Dose: Not Given Sodium Chloride (Ns Flush) 2 ml IV.FLUSH PRN PRN PRN Reason: FLUSH AFTER USING IV ACCESS Sodium Chloride (Ns Flush) 2 ml IV.FLUSH BID [facility] Last Admin: 05/09/18 10:04 Dose: Not Given Sodium Chloride (Ns Flush) 2 ml IV.FLUSH PRN PRN PRN Reason: FLUSH AFTER USING IV ACCESS Assessment and Plan - Plan POD #2 Severe preeclampsia BP are good Will continue labetalol now and f/u in one week Severe anemia with an increased WBC. No venofer. Will start fe after the percocet Increased WBC with a shift...Her exam is perfectly normal and WBC are decreasing. will call for any fevers. Discharge Planning: routine, 3d PP
== END 2018-05-09 14:17 | disposition home or self-care (01) ==
LOC: H2E → H1EA 05-07 14:07
PROVIDERS: ADMIT Obstetrics & Gynecology; ATTEND Obstetrics & Gynecology